=== PATIENT | female | born 1965 | race African-American/Black ===

== ENCOUNTER 2018-03-19 00:08 | Emergency (ER) | payer OTHER ==
[~2018-03-19] VITALS: Ht 170.2 cm; Wt 87.1 kg
[2018-03-19] MEDS ORDERED: AMLODIPINE BESY10 MG PO (00:27)
[2018-03-19] MEDS ORDERED: TRIMETHOPRIM /P10 M1 OTIC (01:20)
[2018-03-19 02:05] VITALS: BP 231/120
== END 2018-03-19 02:00 | disposition home or self-care (01) ==
LOC: ER 00:08
DX: H92.01 Otalgia, right ear (principal); R51 Headache; I10 Essential (primary) hypertension